=== PATIENT | female | born 1965 | race Caucasian/White ===

== ENCOUNTER → 2016-03-29 | Outpatient (CLI) | payer BC ==
[~2016-03-29] MED LIST: NORCO 325 MG-7.1 TAB PO
== END ==
LOC: MC.RAD 15:25
DX: Z12.31 Encounter for screening mammogram for malignant neoplasm of breast (principal)

== ENCOUNTER → 2017-04-01 | Outpatient (CLI) | payer BC | LOC: MC.RAD 14:33 | DX: Z12.31 Encounter for screening mammogram for malignant neoplasm of breast (principal) ==

== ENCOUNTER → 2018-04-10 | Outpatient (CLI) | payer BC | LOC: MC.RAD 06:56 | DX: Z12.31 Encounter for screening mammogram for malignant neoplasm of breast (principal) ==

== ENCOUNTER → 2019-04-20 | Outpatient (CLI) | payer BC | LOC: MC.RAD 07:45 | DX: Z12.31 Encounter for screening mammogram for malignant neoplasm of breast (principal) ==

== ENCOUNTER 2020-11-10 14:44 | Inpatient (IN) | payer BC ==
[~2020-11-10] VITALS: Ht 165.1 cm; Wt 89.5 kg
[2020-11-10 17:14] LABS: HEMATOCRIT 45.3 % (37.0-47.0); HEMOGLOBIN 15.3 g/dl (12.5-16.0); MEAN CELL VOLUME 92 fl (80.0-100.0); MEAN CORPUSCULAR HEMOGLOBIN 31 pg (27.0-31.0); MEAN CORPUSCULAR HGB CONC 34 g/dl (33.0-37.0); MEAN PLATELET VOLUME 10.4 fl (7.4-10.4); PLATELET COUNT 228 K/mm3 (130-400); RED BLOOD COUNT 4.91 M/mm3 (4.10-5.30); REDCELL DISTRIBUTION WIDTH-CV 13.1 % (11.5-14.5)
[2020-11-10 17:25] LABS: ALBUMIN 3.6 gm/dL (3.5-5.0); BILIRUBIN,TOTAL 0.6 mg/dL (0.0-1.0); C-REACTIVE PROTEIN 7.5 mg/dL (0.0-0.9); CALCIUM 8.8 mg/dL (8.4-10.2); CREATININE, serum 0.66 (0.52-1.25); POTASSIUM 4.4 mmol/L (3.4-5.0); TOTAL PROTEIN 7.1 gm/dL (6.4-8.2)
[2020-11-10 18:12] LABS: LYMPHOCYTE 26 % (20.0-51.0); NEUTROPHILS 60 % (42.0-75.2)
[2020-11-10 18:14] LABS: PLATELET ESTIMATE NORMAL (NORMAL)
[2020-11-10 19:36] LABS: ARTERIAL BLD GAS O2 SATURATION 94.5 % (92-100); ARTERIAL BLD GAS TCO2 CT 23.9; ARTERIAL BLOOD GAS BASE EXCESS -0.1 (-2-2); ARTERIAL BLOOD GAS HCO3 22.9 meq/L (22-26); ARTERIAL BLOOD GAS PO2 67.3 mmHg (80-100); ARTERIAL BLOOD GAS pH 7.46 (7.35-7.45)
[2020-11-10 19:55] LABS: INR 1.3 (0.8-3.0); PROTHROMBIN TIME 14.7 SECONDS (9.7-12.8)
[2020-11-10 19:58] LABS: PARTIAL THROMBOPLASTIN TIME 31.5 SECONDS (26.0-37.0)
[2020-11-10 22:45] VITALS: BP 154/84; PULSE 61; TEMP 97.2
[2020-11-10 23:51] VITALS: BP 150/70; PULSE 62; TEMP 97.5
[2020-11-11 03:44] VITALS: BP 134/63; PULSE 65; TEMP 97.9
--- NOTE | 2020-11-11 03:51 | NUR ---
PT AMBULATED TO BATHROOM, ON 3L PT SPO2 DROPPED TO 80-88%. PT RETURNED TO BED, THIS RN MONITORED SPO2, RETURNED TO 92% AT REST WHILE ON 3L NC. WILL PASS ON TO DAY SHIFT.
--- NOTE | 2020-11-11 04:28 | NUR ---
PT TROPONIN REMAINS ELEVATED, PT MADE NPO FOR ECHO TOMORROW. PT HAD BOUT OF DESATURATION OF OXYGEN WHILE AMBULATING TO BATHROOM BEFORE 0400 VS COLLECTION . PT REPORTS "SLIGHTLY SOA" BUT DENIED DIZZINESS OR PAIN. PT SATURATIONS STABILIZED WITH RN PRESENT WHILE RESTING IN BED. PT FREE FROM INJURY THIS SHIFT, DENIED PAIN FOR DURATION OF SHIFT.
[2020-11-11 08:39] LABS: HEMOGLOBIN 15.5 g/dl (12.5-16.0); MEAN CELL VOLUME 94 fl (80.0-100.0); MEAN CORPUSCULAR HEMOGLOBIN 32 pg (27.0-31.0); MEAN CORPUSCULAR HGB CONC 34 g/dl (33.0-37.0); MEAN PLATELET VOLUME 9.5 fl (7.4-10.4); PLATELET COUNT 274 K/mm3 (130-400); RED BLOOD COUNT 4.91 M/mm3 (4.10-5.30)
[2020-11-11 09:08] LABS: BAND 6 % (0-10); METAMYELOCYTE 2 % (0-0); NEUTROPHILS 57 % (42.0-75.2)
[2020-11-11 09:09] LABS: LYMPHOCYTE 26 % (20.0-51.0)
[2020-11-11 09:22] VITALS: BP 146/67; PULSE 72; TEMP 98.3
--- NOTE | 2020-11-11 09:38 | NUR ---
Assessment completd, alert/oriented, vital sign stable, denies pain or discomfort, stated she "feels a little better today", she is requiring 10L o2 to keep sats in the mid 90%'s, has fine crackles in lung bases but good air exchange throuhgout upper lobes, encouraged cough/deep breathing and to ambulate and change positions in her room frequently, heart RRR/ distal pulses are palapble, she denies other needs at this time will continue to monitro
--- NOTE | 2020-11-11 10:03 | NUR ---
The patient is COVID positive. SW contacted the patient to discuss discharge plan. The patient lives alone in [place]. She states that she has family that also live in [facility]. She reports independence with ADLs and does not have any DME. The patient's PCP is Dr. Jennifer Hernandez and she receives her medications from [facility]. She reports no difficulties obtaining her meds. The patient does not believe she has a DPOA-HC and she was interested in obtaining a form. SW collaborated with the patient's RN and provided him with a form to give to the patient. The patient states that she is not and does not have any children. Her mother, Ratna (ph#[phone]), is her next of kin. SW informed the patient of this. The patient verbalized understanding. She states that she would like to have her sister, Danette Kelly (ph#[phone]), listed as her person to contact and would prefer for Danette to be contacted. The patient plans to return home upon discharge. The patient is currently requiring 10 liters of oxygen. SW to continue to monitor. *Discharge plan: home*
--- NOTE | 2020-11-11 11:00 | NUR ---
Assessment completed, alert/oriented, vital signs stable, still has some RUQ tenderness but reports pain is minimal at this time and she is feeling improved, she went down to nuc. med for he HIDA scan this morning and we are awaiting results, she remains NPO at this time and has D5 IVF running, mother is present at bedside, they deny needs or concersn at this time
[2020-11-11 11:52] VITALS: BP 168/82; PULSE 73; TEMP 98.1
[2020-11-11 14:05] LABS: PATHOLOGY DIFF REVIEW OK +
[2020-11-11 18:07] VITALS: BP 140/73; PULSE 73; TEMP 98.2
[2020-11-11 20:21] VITALS: BP 164/81; PULSE 60; TEMP 97.5
[2020-11-12] VITALS (8 sets, daily range): BP systolic 104–152; BP diastolic 61–79; PULSE 51–84; TEMP 97.5–98.6
--- NOTE | 2020-11-12 00:20 | NUR ---
Patient alert and oriented. Patient currently on 12L oxygen via HF NC. Patient denies SOB or dyspnea while at rest. Breathing even and unlabored at this time. Denies any pain, N/V, or diarrhea. All scheduled meds given per MAY. Call light in reach. Will continue to monitor.
[2020-11-12 04:07] LABS: ARTERIAL BLD GAS O2 SATURATION 94.1 % (92-100); ARTERIAL BLD GAS TCO2 CT 23.5; ARTERIAL BLOOD GAS BASE EXCESS -0.4 (-2-2); ARTERIAL BLOOD GAS HCO3 22.5 meq/L (22-26); ARTERIAL BLOOD GAS PCO2 32.1 mmHg (35-45); ARTERIAL BLOOD GAS PO2 67.4 mmHg (80-100); ARTERIAL BLOOD GAS pH 7.46 (7.35-7.45)
--- NOTE | 2020-11-12 08:00 | NUR ---
Patient laying prone in bed, independent in the room. A&Ox4. VSS. 11L HF NC. IV CDI. Denies pain and discomfort. No further needs expressed. Call light within reach
[2020-11-12 08:40] LABS: HEMATOCRIT 41.1 % (37.0-47.0); HEMOGLOBIN 14.1 g/dl (12.5-16.0); MEAN CELL VOLUME 93 fl (80.0-100.0); MEAN CORPUSCULAR HEMOGLOBIN 32 pg (27.0-31.0); MEAN CORPUSCULAR HGB CONC 34 g/dl (33.0-37.0); PLATELET COUNT 310 K/mm3 (130-400); RED BLOOD COUNT 4.42 M/mm3 (4.10-5.30); REDCELL DISTRIBUTION WIDTH-CV 12.9 % (11.5-14.5)
[2020-11-12 08:50] LABS: ALBUMIN 3.2 gm/dL (3.5-5.0); BILIRUBIN,TOTAL 0.4 mg/dL (0.0-1.0); C-REACTIVE PROTEIN 2.2 mg/dL (0.0-0.9); CALCIUM 8.4 mg/dL (8.4-10.2); CREATININE, serum 0.68 (0.52-1.25); POTASSIUM 3.6 mmol/L (3.4-5.0); TOTAL PROTEIN 6.2 gm/dL (6.4-8.2)
[2020-11-12 10:44] LABS: LYMPHOCYTE 15 % (20.0-51.0); NEUTROPHILS 80 % (42.0-75.2); PLATELET ESTIMATE NORMAL (NORMAL)
--- NOTE | 2020-11-12 17:53 | NUR ---
Patient had an uneventful day. Took a shower and states that he feels better. A&Ox4. VSS 1L NC O2. No reported SOB. Denies pain and discomfort. Droplet/contact precautions in place. No further needs expressed. Call light within reach
--- NOTE | 2020-11-12 18:11 | NUR ---
Patient has had an uneventful day. A&Ox4. VSS 11L HF NC O2. Denies pain and discomfort. Independent in the room and been laying prone and supine while in bed. IV CDI. Droplet/contact precautions in place. No further needs expressed. Call light within reach
--- NOTE | 2020-11-13 00:22 | NUR ---
Patient resting in bed upon enter the room. Patient alert and oriented. Patient denies any pain or discomfort. Denies SOB or dyspnea while at rest. Patient reports SOB with activities. N/V, or diarrhea. Patient currently on 15L oxygen via HF NC. Breathing even and unlabored. Meds given per MAY. Call light in reach. Will continue to monitor.
[2020-11-13 03:35] VITALS: BP 150/80; PULSE 61; TEMP 98
--- NOTE | 2020-11-13 06:23 | NUR ---
Patient on remains on oxygen 15L via HF NC over the night. SPO2 90-93% on 15L. Call light in reach. Will continue to monitor.
[2020-11-13 07:24] LABS: HEMATOCRIT 40.7 % (37.0-47.0); HEMOGLOBIN 13.8 g/dl (12.5-16.0); MEAN CELL VOLUME 94 fl (80.0-100.0); MEAN CORPUSCULAR HEMOGLOBIN 32 pg (27.0-31.0); MEAN CORPUSCULAR HGB CONC 34 g/dl (33.0-37.0); PLATELET COUNT 319 K/mm3 (130-400); RED BLOOD COUNT 4.32 M/mm3 (4.10-5.30); REDCELL DISTRIBUTION WIDTH-CV 12.9 % (11.5-14.5)
[2020-11-13 07:40] LABS: C-REACTIVE PROTEIN 1.5 mg/dL (0.0-0.9); CALCIUM 8.7 mg/dL (8.4-10.2); CREATININE, serum 0.85 (0.52-1.25); POTASSIUM 3.9 mmol/L (3.4-5.0)
[2020-11-13 08:00] VITALS: BP 134/70; PULSE 57; TEMP 97.7
--- NOTE | 2020-11-13 08:00 | NUR ---
Patient sitting up in bed, A&Ox4. VSS 15L HF NC O2. IV CDI. Denies pain, discomfort and SOB. Droplet/contact precautions in place. No further needs expressed. Call light within reach
[2020-11-13 09:16] LABS: LYMPHOCYTE 19 % (20.0-51.0); NEUTROPHILS 75 % (42.0-75.2)
[2020-11-13 09:17] LABS: PLATELET ESTIMATE NORMAL (NORMAL)
--- NOTE | 2020-11-13 10:05 | NUR ---
PACED PT ON AIRVO 55L 90% SPO2 91%. RN NOTIFIED
[2020-11-13 11:31] VITALS: BP 135/76; PULSE 57; PULSE 62; TEMP 57; TEMP 97.7
[2020-11-13 16:02] VITALS: BP 134/74; PULSE 60; TEMP 97.6
--- NOTE | 2020-11-13 18:08 | NUR ---
Patient had an uneventful day. No complaints of pain or SOB. Some complaints with the Airvo and fast O2 flow. A&Ox4. VSS. IV CDI. Droplet/contact precautions in place. No further needs expressed from the patient. Call light within reach
[2020-11-13 20:19] VITALS: BP 152/75; PULSE 51; TEMP 97.8
[2020-11-13 23:20] VITALS: BP 151/66; PULSE 53; TEMP 97.9
[2020-11-14 04:03] LABS: ARTERIAL BLD GAS O2 SATURATION 97.4 % (92-100); ARTERIAL BLD GAS TCO2 CT 25.2; ARTERIAL BLOOD GAS HCO3 24.2 meq/L (22-26); ARTERIAL BLOOD GAS PCO2 34.4 mmHg (35-45); ARTERIAL BLOOD GAS PO2 90.5 mmHg (80-100); ARTERIAL BLOOD GAS pH 7.47 (7.35-7.45)
[2020-11-14 04:57] VITALS: BP 132/73; PULSE 55; TEMP 98.2
[2020-11-14 06:56] LABS: HEMATOCRIT 39.1 % (37.0-47.0); HEMOGLOBIN 13.6 g/dl (12.5-16.0); MEAN CELL VOLUME 90 fl (80.0-100.0); MEAN CORPUSCULAR HEMOGLOBIN 31 pg (27.0-31.0); MEAN CORPUSCULAR HGB CONC 35 g/dl (33.0-37.0); MEAN PLATELET VOLUME 10.2 fl (7.4-10.4); PLATELET COUNT 302 K/mm3 (130-400); RED BLOOD COUNT 4.35 M/mm3 (4.10-5.30); REDCELL DISTRIBUTION WIDTH-CV 12.8 % (11.5-14.5)
[2020-11-14 07:15] LABS: ALBUMIN 3.1 gm/dL (3.5-5.0); BILIRUBIN,TOTAL 0.3 mg/dL (0.0-1.0); C-REACTIVE PROTEIN 1.7 mg/dL (0.0-0.9); CALCIUM 8.3 mg/dL (8.4-10.2); CREATININE, serum 0.54 (0.52-1.25); POTASSIUM 3.5 mmol/L (3.4-5.0); TOTAL PROTEIN 5.9 gm/dL (6.4-8.2)
[2020-11-14 07:40] LABS: BAND 1 % (0-10); LYMPHOCYTE 10 % (20.0-51.0); NEUTROPHILS 86 % (42.0-75.2); PLATELET ESTIMATE NORMAL (NORMAL)
--- NOTE | 2020-11-14 09:12 | NUR ---
Pt awake upon entry, no C/O pain at this time. Shift assessment complete, left Pt call light in reach, bed in lowest position.
[2020-11-14 09:47] VITALS: BP 137/70; PULSE 77; TEMP 98.3
[2020-11-14 12:00] VITALS: BP 120/63; PULSE 59; TEMP 97.9
--- NOTE | 2020-11-14 13:35 | NUR ---
The patient remains on 55 liters of oxygen, via high flow cannula. SW contacted the patient to follow up. The patient states that she is feeling good right now. She had no concerns for SW at this time. SW to continue to monitor. *Discharge plan: home*
[2020-11-14 16:37] VITALS: BP 131/74; PULSE 63; TEMP 97.8
[2020-11-14 20:33] VITALS: BP 112/69; PULSE 58; TEMP 97.7
--- NOTE | 2020-11-14 22:40 | NUR ---
PT RESTING IN BED. EVENING MEDICATIONS GIVEN. LUNG SOUNDS VERY DIMINISHED. DENIES ANY NEEDS AT THIS TIME. RN SPOKE WITH KIMO ON THE PHONE TO GIVE UPDATE, STATES PT SOUNDS LIKE SHE MIGHT WE CONFUSED. WILL CONTINUE TO MONITOR.
[2020-11-14 23:40] VITALS: BP 133/75; PULSE 57; TEMP 97.5
[2020-11-15 04:09] VITALS: BP 131/79; PULSE 65; TEMP 98.5
--- NOTE | 2020-11-15 05:55 | NUR ---
PT HAD A RESTFUL NIGHT. DENIES ANY NEEDS AT THIS TIME. WILL CONTINUE TO MONITOR.
--- NOTE | 2020-11-15 08:36 | NUR ---
Pt awake upon entry, sitting in the recliner. No C/O pain at this time. Shift assessments complete, left Pt call light in reach, needs met.
[2020-11-15 09:09] VITALS: BP 114/69; PULSE 61; TEMP 98.6
[2020-11-15 12:22] VITALS: BP 102/67; PULSE 67; TEMP 98
[2020-11-15 16:26] VITALS: BP 124/72; PULSE 65; TEMP 97.7
[2020-11-15 19:12] VITALS: BP 124/79; PULSE 59; TEMP 97.1
--- NOTE | 2020-11-15 21:17 | NUR ---
PT RESTING IN BED. EVENING MEDICATIONS GIVEN. PT LUNGS SOUNDS VERY DIMINSHED. PT FEELING DISCOURAGED AND CONFUSED BECAUSE SHE FEELS LIKE SHE IS DOING EVERYTHING SHE IS TOLD BUT IS NOT IMPROVING. ENCOURAGED PT TO CONTINUE PRONING, WALKING, AND USING INCENTIVE SPIROMETER. EXPLAINED TO PT THAT THIS IS A SLOW PROCESS AND THAT OTHER PTS HAVE BEEN SUCCESSFUL WITH THIS REGIMEN. ALSO SPOKE WITH DEE MALIN TO GIVE UPDATE AT THIS TIME. DENIES ANY NEEDS. WILL CONTINUE TO MONITOR.
[2020-11-15 22:31] VITALS: BP 127/77; PULSE 66; TEMP 97.9
[2020-11-16 03:32] VITALS: BP 132/72; PULSE 69; TEMP 97.9
--- NOTE | 2020-11-16 06:17 | NUR ---
PT WAS ABLE TO GET SOME REST TONIGHT. DENIES ANY NEEDS. WILL CONTINUE TO MONITOR.
[2020-11-16 08:00] VITALS: BP 105/73; PULSE 71; TEMP 97.6
--- NOTE | 2020-11-16 08:31 | NUR ---
Pt awake upon entry, sitting on side of bed. No C/O pain at this time. Shift assessment complete, left Pt call light in reach.
[2020-11-16 12:22] VITALS: BP 131/71; PULSE 64; TEMP 97.7
[2020-11-16 16:28] VITALS: BP 112/70; PULSE 66; TEMP 97.9
[2020-11-16 19:40] VITALS: BP 132/84; PULSE 62; TEMP 97.7
[2020-11-17] VITALS (7 sets, daily range): BP systolic 101–126; BP diastolic 56–82; PULSE 60–93; TEMP 97.3–98.4
--- NOTE | 2020-11-17 05:24 | NUR ---
Awake, alert, oriented x 4, able to make needs known, telemetry in use, VS stable, tolerating Air Vo 55L 88%FIO2, general diet and 1500ml fluid restriction, denies pain.
[2020-11-17 08:40] LABS: BASO % 0.1 % (0.0-2.0); EOS % 0.1 % (0-4.0); GRAN % 73.9 % (42.2-75.2); HEMATOCRIT 39.6 % (37.0-47.0); HEMOGLOBIN 13.6 g/dl (12.5-16.0); LYMPH # 1.7 (1.2-3.4); LYMPH % 17.4 % (20.0-51.0); MEAN CELL VOLUME 90 fl (80.0-100.0); MEAN CORPUSCULAR HEMOGLOBIN 31 pg (27.0-31.0); MEAN CORPUSCULAR HGB CONC 34 g/dl (33.0-37.0); MEAN PLATELET VOLUME 10.8 fl (7.4-10.4); MONO # 0.7 (0.1-0.6); MONO % 7.4 % (1.7-9.3); PLATELET COUNT 314 K/mm3 (130-400); RED BLOOD COUNT 4.38 M/mm3 (4.10-5.30); REDCELL DISTRIBUTION WIDTH-CV 12.8 % (11.5-14.5)
[2020-11-17 08:53] LABS: CALCIUM 8.8 mg/dL (8.4-10.2); CREATININE, serum 0.52 (0.52-1.25); MAGNESIUM 1.9 mg/dL (1.6-2.3); POTASSIUM 3.8 mmol/L (3.4-5.0)
[2020-11-18 00:22] VITALS: BP 106/59; PULSE 69; TEMP 98.1
[2020-11-18 04:59] VITALS: BP 110/58; PULSE 73; TEMP 98.4
--- NOTE | 2020-11-18 05:08 | NUR ---
Awake, alert, ox4, ambulatory, tolerating 6L per NC w/o issue, will continue to monitor.
[2020-11-18 08:34] VITALS: BP 125/79; PULSE 72; TEMP 98.1
[2020-11-18 12:25] VITALS: BP 113/70; PULSE 70; TEMP 97.7
[2020-11-18 16:43] VITALS: BP 123/70; PULSE 87; TEMP 98.4
[2020-11-18 20:57] VITALS: BP 126/75; PULSE 64; TEMP 97.8
[2020-11-19 01:01] VITALS: BP 134/79; PULSE 74; TEMP 98.8
[2020-11-19 04:35] VITALS: BP 120/70; PULSE 64; TEMP 98
--- NOTE | 2020-11-19 04:59 | NUR ---
Awake, alert, oriented x 4, tolerating O2@3L per NC, VS stable, telemetry in use, call zapien w/i reach, denies pain.
[2020-11-19 07:22] VITALS: BP 131/73; PULSE 65; TEMP 97.8
--- NOTE | 2020-11-19 08:00 | NUR ---
Patient A&Ox4. VSS 2L NC O2, no reported SOB. Denies pain and discomfort. Droplet/contact precautions in place. No further needs expressed. Call light within reach
[2020-11-19] MEDS ORDERED: RT Albuterol HFA MDI IH (09:23)
[2020-11-19] MEDS ORDERED: LIPITOR 40MG TA40 MG PO (09:24)
[2020-11-19] MEDS ORDERED: PROAIR HFA0.09 MG/AC IH (09:24)
[2020-11-19] MEDS ORDERED: COREG 3.123.125 MG/T PO (09:24)
[2020-11-19] MEDS ORDERED: ASPI325T6 PO (09:25)
== END 2020-11-19 14:00 | disposition home or self-care (01) | DRG 177 ==
LOC: COL.ER 14:44 → MEDICAL 18:54
PROVIDERS: Emergency Medicine; Internal Medicine; Internal Medicine Sleep Medicine; Nurse Practitioner Family; ADMIT Internal Medicine
PROC: XW043E5 Introduction of Remdesivir Anti-infective into Central Vein, Percutaneous Approach, New Technology Group 5 (ICD-10-PCS; principal; 2020-11-13)
DX: U07.1 COVID-19 (principal); J96.01 Acute respiratory failure with hypoxia; I21.A1 Myocardial infarction type 2; I10 Essential (primary) hypertension; R74.01 Elevation of levels of liver transaminase levels
CPT/HCPCS: 99222-AI; 99232-AI; 99233-AI; 99239; A9284; J0696; J1100; J1650; J7030; J7050; J7120; J8540